=== PATIENT | male | born 1975 | race Two or more races ===

== ENCOUNTER 2021-05-08 19:24 | Emergency (ER) | payer OTHER ==
[~2021-05-08] VITALS: Ht 172.7 cm; Wt 97.5 kg
[2021-05-08] MEDS ORDERED: CALAMINE SUSPE177 ML TOP (22:41)
[2021-05-08] MEDS ORDERED: ZOVIRAX800 MG PO (22:41)
== END 2021-05-08 22:51 | disposition home or self-care (01) ==
LOC: ER 19:24
DX: B34.9 Viral infection, unspecified (principal); Z03.818 Encounter for observation for suspected exposure to other biological agents ruled out

== ENCOUNTER 2021-09-17 19:14 | Inpatient (IN) | payer OTHER ==
[~2021-09-17] VITALS: Ht 172.7 cm; Wt 94.3 kg
[~2021-09-17 19:14] MED LIST: CALAMINE SUSPE177 ML TOP; ZOVIRAX800 MG PO
== END 2021-09-23 13:55 | disposition home or self-care (01) | DRG 440 ==
LOC: ER 19:14 → SURH 09-18 14:24 → MEDI 09-18 14:24 → SURH 09-18 17:33
PROVIDERS: ADMIT Internal Medicine; ATTEND Internal Medicine
PROC: BW21ZZZ Computerized Tomography (CT Scan) of Abdomen and Pelvis (ICD-10-PCS; principal; 2021-09-18)
DX: K85.80 Other acute pancreatitis without necrosis or infection (principal); I10 Essential (primary) hypertension; E86.0 Dehydration; E87.8 Other disorders of electrolyte and fluid balance, not elsewhere classified; R10.9 Unspecified abdominal pain; E78.49 Other hyperlipidemia; M10.9 Gout, unspecified; Z20.822 Contact with and (suspected) exposure to COVID-19